=== PATIENT | male | born 2005 | race Caucasian/White ===

== ENCOUNTER 2024-02-05 19:33 | Emergency (ER) | payer OTHER | END 2024-02-05 21:23 | disposition home or self-care (01) | LOC: CSHERS 19:33 | DX: F10.129 Alcohol abuse with intoxication, unspecified (principal); V89.2XXA Person injured in unspecified motor-vehicle accident, traffic, initial encounter; F17.210 Nicotine dependence, cigarettes, uncomplicated | CPT/HCPCS: 70450; 71045; 72125; 93005 ==